=== PATIENT | male | born 1945 ===

== ENCOUNTER 2021-11-04 05:40 | Day surgery (SDC) | payer OTHER | END 2021-11-04 13:20 | disposition home or self-care (01) | LOC: AMB-ENDOS 05:40 | PROVIDERS: ATTEND Surgery | DX: D12.2 Benign neoplasm of ascending colon (principal); D12.3 Benign neoplasm of transverse colon; Z86.010 Personal history of colon polyps; Z79.82 Long term (current) use of aspirin ==